=== PATIENT | female | born 1955 | race Caucasian/White ===

== ENCOUNTER 2017-03-13 09:25 | Outpatient (CLI) | payer BC ==
[~2017-03-13] VITALS: Ht 162.6 cm; Wt 78.2 kg
--- NOTE | ~2017-03-13 | OP ---
PATIENT NAME: MARTINA PERRY MEDICAL RECORD: [id number] :[birth year] LOCATION:D.[facility] ADMISSION DATE: SURGEON: ANA MARIA HOWARD MD DATE OF OPERATION: 03/13/2017 PROCEDURES: 1. Left heart catheterization. 2. Selective coronary angiography. 3. Left ventriculogram. INDICATION: Chest pain compatible with angina. PROCEDURE IN DETAIL: After informed consent was obtained and after a detailed explanation of risks, benefits as well as alternative therapies, the patient elected to proceed with angiogram and heart catheterization. The right radial area was prepped and draped in normal sterile fashion. The right radial artery was cannulated via modified Seldinger technique with placement of 5-Polish sheath. All catheters exchanged through this sheath. FINDINGS: Left ventriculogram was performed in standard 30-degree MORELAND view, reveals good cardiac wall motion throughout all segments. Overall ejection fraction estimated at 60%. SELECTIVE CORONARY ANGIOGRAPHY: Left main, left anterior descending, left circumflex, and right coronary artery are all smooth-walled vessels with no angiographic evidence of coronary artery disease. OVERALL IMPRESSION: 1. No angiographic evidence of coronary artery disease. 2. Normal left heart pressures. 3. Normal left ventricular systolic function, chest discomfort is noncardiac in etiology. No further cardiac workup needs to be ascertained. TRANSINT:[id number] Voice Confirmation ID: [id number] DOCUMENT ID: [id number] ANA MARIA HOWARD MD at 1025 CC: [id number] DICTATION DATE: 03/13/17 1250 [employer] SUPERVISOR: 03/13/17 1334 DEP CLI 03/13/17 [address] [place] [address]
--- NOTE | ~2017-03-13 | HEMODYNAMI ---
PATIENT:MARTINA PERRY MEDICAL RECORD: [id number] : 59 LOCATION:[facility] ADMISSION DATE: 03/13/17 Generatedon:03/13/201712:52 Patient name: MARTINA PERRY Patient #: [id number] SSN: : 1955 Date of study: 03/13/2017 Page: Of Hemodynamic Procedure Report Patient Data Patient Demographics Procedure consent was obtained First Name: MARTINA Gender: Female Last Name: VICKY : 1955 Patient #: [id number] Age: 61 year(s) Race: Unknown Additional ID: [id number] Contact details Address: [address] State: [place] City: [place] Zip code: [address] Admission Admission Data Admission Date: 03/13/2017 Admission Time: 9:25 Procedure Procedure Types Cath Procedure Diagnostic Procedure LHC LHC w/Coronaries Miscellaneous Procedures Moderate Sedation up to 15 minutes Procedure Description Procedure Date Procedure Date: 03/13/2017 Procedure Start Time: 12:44 Procedure End Time: 12:51 Procedure Staff Name Function Umesh Collier MD Performing Physician Elliot Felix RT Monitor Jazmyn Spencer RT Scrub Jonathan Fajardo RN Nurse Procedure Data Cath Procedure Fluoroscopy Diagnostic fluoroscopy Total fluoroscopy Time: 0.6 time: 0.6 min min Diagnostic fluoroscopy Total fluoroscopy dose: 171 dose: 171 mGy mGy Contrast Material Contrast Material Type Amount (ml) Isovue 300 31 Entry Location Entry Primary Successful Side Size Upsize Upsize Entry Closure Dillard ccessful Closure Location (Fr) 1 (Fr) 2 (Fr) Remarks Device Remarks Radial Right 6 Fr Mechanical artery Short Compression Estimated blood loss: 10 ml Diagnostic catheters Device Type Used For End Catheter Placement DIAGNOSTIC Orient 110cm 5 Procedure Fr catheter ([id number]) Procedure Complications No complications Procedure Medications Medication Administration Route Dosage Oxygen NC 2 l/min Heparin Flush Bag added to field 2 bags (1000units/500ml NS) 0.9% NaCl I.V. 100 ml/hr Radial Cocktail added to field 1 syringe (Verapomil 2mg/Nitro 400mcg/Heparin 1500units) Fentanyl I.V. 50 mcg Versed I.V. 1 mg Fentanyl I.V. 50 mcg Versed I.V. 1 mg Radial Cocktail I.A. 1 syringe (Verapomil 2mg/Nitro 400mcg/Heparin 1500units) Fentanyl I.V. 50 mcg Versed I.V. 1 mg Fentanyl I.V. 50 mcg Versed I.V. 1 mg Hemodynamics Rest Heart Rate: 58 (bpm) Snapshots Pre Cath Intra NCS Post Cath Vital Signs Time Heart Resp SPO2 etCO2 NIBP (mmHg) Rhythm Pain Sedation Rate (ipm) (%) (mmHg) Status Level (bpm) 12:17:01 57 13 98 0 135/72(104) NSR 0 (11) 10(A) , No pain 12:21:48 57 24 98 38.4 109/53(75) NSR 0 (11) 10(A) , No pain 12:26:33 55 16 98 45.9 114/65(85) NSR 0 (11) 10(A) , No pain 12:31:16 55 18 96 44.6 111/60(79) NSR 0 (11) 10(A) , No pain 12:35:58 57 18 96 45.9 99/55(78) NSR 0 (11) 10(A) , No pain 12:40:40 55 16 95 43.7 113/65(99) NSR 0 (11) 10(A) , No pain 12:46:06 57 19 94 42.1 126/65(99) NSR 0 (11) 9(A) , No pain 12:49:59 59 16 94 44.4 109/60(86) NSR 0 (11) 9(A) , No pain Medications Time Medication Route Dose Verified Delivered Reason Notes Effectiveness by by 12:22:48 Oxygen NC 2 l/min Umesh Castillo Per Nando Fajardo RN physician 12:22:59 Heparin Flush added 2 bags Umesh Castillo used for 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 100 Umesh Castillo Per ml/hr Nando Fajardo RN physician 12:23:22 Radial Cocktail added 1 Umesh Castillo used for (Verapomil to syringe Nando Fajardo RN procedure 2mg/Nitro field 400mcg/Heparin 1500units) 12:42:08 Fentanyl I.V. 50 mcg Umesh Castillo for sedation Nando Fajardo RN 12:42:16 Versed I.V. 1 mg Umesh Jonathan for sedation Nando Fajardo RN 12:44:28 Fentanyl I.V. 50 mcg Umesh Castillo for sedation Nando Fajardo RN 12:44:31 Versed I.V. 1 mg Umesh Jonathan for sedation Nando Fajardo RN 12:46:26 Radial Cocktail I.A. 1 Umesh Calvo for (Verapomil syringe Nando Collier MD vasodilation 2mg/Nitro 400mcg/Heparin 1500units) 12:46:33 Fentanyl I.V. 50 mcg Umesh Jonathan for sedation Nando Fajardo RN 12:46:38 Versed I.V. 1 mg Umesh Jonathan for sedation Nando Fajardo RN 12:48:39 Fentanyl I.V. 50 mcg Umesh Castillo for sedation Nando Fajardo RN 12:48:42 Versed I.V. 1 mg Umesh Castillo for sedation Nando Fajardo RN Procedure Log Time Note 11:55:03 Elliot Felix RT(R) sent for patient. Start room use. 12:05:04 Time tracking: Regular hours 12:05:08 Plan of Care:Hemodynamics will remain stable., Cardiac rhythm will remain stable., Comfort level will be maintained., Respiratory function will remain adequate., Patient/ family verbilizes understanding of procedure., Procedure tolerated without complication., Recovers from procedure without complications.. 12:10:22 Patient received from Pre/Post Procedure Room to CCL 1 Alert and oriented. Tansferred to table in Supine position. 12:10:23 Warm blankets applied, and sonam hugger turned on for patient comfort. 12:10:24 Correct patient and procedure confirmed by team. 12:10:25 Signed procedure consent form obtained from patient. 12:10:26 ECG and BP/O2 sat monitors applied to patient. 12:10:28 Full Disclosure recording started 12:15:56 Vital chart was started 12:19:17 Baseline sample Acquired. 12:19:28 Rhythm: sinus bradycardia 12:19:45 H&P Date Dictated: 03/11/2017 Within 30 days and on chart., H&P Addendum completed by physician on day of procedure. (MUST COMPLETE FOR ALL OUTPATIENTS). 12:19:46 Pre-procedure instructions explained to patient. 12:19:47 Pre-op teaching completed and patient verbalized understanding. 12:19:49 Family in waiting room. 12:19:51 Patient NPO since Midnight. 12:19:53 Is the patient allergic to Iodine/contrast media? No. 12:19:56 Is patient on blood thinner?No 12:19:58 Patient diabetic? No. 12:20:00 Patient not . Patient is over age 55. 12:20:03 Previous problem with sedation/anesthesia? No Nausea sometimes post anesthsia 12:20:33 Snore? Yes 12:20:34 Sleep apnea? No 12:20:35 Deviated septum? No 12:20:35 Opens mouth fully? Yes 12:20:36 Sticks out tongue? Yes 12:20:37 Airway obstruction? No ? 12:20:40 Dentures? No ? 12:20:43 Pre procedure: right dorsailis pedis pulse 1+ Palpable, but thready & weak; easily obliterated 12:20:45 Modified Bharath's test Ulnar < 7 seconds 12:20:47 Patient pain scale 0/10 ?. 12:20:52 IV patent on arrival in left antecubital with 0.9% NaCl at O. 12:21:03 Lab results completed and on chart. 12:21:06 Right Radial & Right Groin area was prepped with chlora-prep and draped in sterile fashion 12:21:07 Alarms reviewed by R. N. 12:21:07 Sharps counted by scrub and verified by R.N. 12:21:12 Use device set Radial Dx or PCI 12:21:18 Tegaderm 4 x 4 (1626W) opened to sterile field. 12:21:19 ACIST Hand Control (31531) opened to sterile field. 12:21:19 ACIST Manifold (51640) opened to sterile field. 12:21:20 ACIST Syringe (36428) opened to sterile field. 12:21:21 Medline Cath Pack ([id number]) opened to sterile field. 12:21:21 Bag Decanter (2002S) opened to sterile field. 12:21:22 SHEATH 6FR Slender ([id number]) opened to sterile field. 12:21:22 DIAGNOSTIC WIRE .035 260cm J wire (628366) opened to sterile field. 12:21:23 MBrace Wrist Support ([id number]) opened to sterile field. 12:22:48 Oxygen 2 l/min NC was administered by Jonathan Fajardo RN; Per physician; 12:22:59 Heparin Flush Bag (1000units/500ml NS) 2 bags added to field was administered by Jonathan Fajardo RN; used for procedure; 12:23:10 0.9% NaCl 100 ml/hr I.V. was administered by Jonathan Fajardo RN; Per physician; 12:23:22 Radial Cocktail (Verapomil 2mg/Nitro 400mcg/Heparin 1500units) 1 syringe added to field was administered by Jonathan Fajardo RN; used for procedure; 12:25:53 Physician paged 12:36:19 Zero performed for pressure channel P1 12:41:29 --------ALL STOP TIME OUT------ 12:41:29 Final Timeout: patient, procedure, and site verified with staff and physician. All members of the team are in agreement. 12:41:33 Right Radial & Right Groin site verified by team. 12:41:37 Physical assessment completed. ASA score P 2 - A patient with mild systemic disease as per Umesh Collier MD. 12:41:39 Sedation plan: IV Moderate Sedation Medication:Versed, Fentanyl 12:42:08 Fentanyl 50 mcg I.V. was administered by Jonathan Fajardo RN; for sedation; 12:42:16 Versed 1 mg I.V. was administered by Jonathan Fajardo RN; for sedation; 12:44:04 Procedure started. 12:44:09 Local anesthetic to right radial artery with Lidocaine 2% by Umesh Collier MD.INITIAL ACCESS ONLY 12:44:28 Fentanyl 50 mcg I.V. was administered by Jonathan Fajardo RN; for sedation; 12:44:31 Versed 1 mg I.V. was administered by Jonathan Fajardo RN; for sedation; 12:45:57 A 6 Fr Short sheath was inserted into the Right Radial artery 12:46:26 Radial Cocktail (Verapomil 2mg/Nitro 400mcg/Heparin 1500units) 1 syringe I.A. was administered by Umesh Collier MD; for vasodilation; 12:46:31 A DIAGNOSTIC Orient 110cm 5 Fr catheter (413201) was advanced over the wire and used for Procedure. 12:46:33 Fentanyl 50 mcg I.V. was administered by Jonathan Fajardo RN; for sedation; 12:46:38 Versed 1 mg I.V. was administered by Jonathan Fajardo RN; for sedation; 12:47:05 LV angiography performed. 12:47:06 LV gram done using MORELAND 12:47:11 EF : 60 % 12:47:15 Injector settings: Ml/sec: 7, Volume: 15, 12:47:30 RCA angiography performed. 12:47:45 LCA angiography performed. 12:47:48 TR BAND Standard ([id number]) opened to sterile field. 12:47:55 Catheter removed. 12:48:18 Sheath removed intact; hemostasis achieved with Mechanical Compression to the Right Radial artery. 12:48:20 Procedure ended.(Physican Out) 12:48:39 Fentanyl 50 mcg I.V. was administered by Jonathan Fajardo RN; for sedation; 12:48:42 Versed 1 mg I.V. was administered by Jonathan Fajardo RN; for sedation; 12:49:02 Fluoroscopy time 00.60 minutes. 12:49:06 Fluoroscopy dose: 171 mGy 12:49:06 Flurop Dose total: 171 12:49:10 Contrast amount:Isovue 300 31ml. 12:49:12 Sharps counted by scrub and verified by R.N. 12:49:14 TR band inflated with 12cc of air. 12:49:15 Insertion/operative site no bleeding no hematoma. 12:49:16 Post Procedure Pulses reassessed and unchanged 12:49:19 Post-procedure physical assessment completed. ASA score P 2 - A patient with mild systemic disease as per Umesh Collier MD. 12:49:21 Post procedure rhythm: unchanged. 12:49:24 Estimated blood loss: 10 ml 12:49:26 Post procedure instruction explained to patient.Patient verbalizes understanding. 12:49:26 Patient needs reinforcement of post procedure teaching. 12:49:33 Procedure type changed to Cath procedure, Diagnostic procedure, LHC, LHC w/Coronaries, Miscellaneous Procedures, Moderate Sedation up to 15 minutes 12:49:34 Procedure and supply charges have been captured, reviewed, submitted and are correct. 12:49:37 Procedure Complication : No complications 12:51:04 Vital chart was stopped 12:51:05 See physician's report for complete and final results. 12:51:06 Report given to Pre/Post Procedure Room. 12:51:09 Patient transfered to Pre/Post Procedure Room with Stretcher. 12:51:12 Procedure ended. 12:51:12 Full Disclosure recording stopped 12:51:22 End room use (Document Last) Device Usage Item Name Manufacture Quantity Catalog Hospital Part Current Minima l Lot# / Number Charge Number Stock Stock Serial# Code Tegaderm 4 x 3M 1 1626W [id number] 473554 [id number] 5 4 (1626W) ACIST Hand Acist 1 58040 793692 383041 250501 5 Control Medical (23900) Systems Inc ACIST Acist 1 32258 107176 395939 198660 5 Manifold Medical (38182) Systems Inc ACIST Acist 1 17582 741458 083187 379352 20 Syringe Medical (87434) Systems Inc Medline Cath Cardinal 1 [id number] 964313 02533 926725 5 Pack Health ([id number]) Bag Decanter Microtek 1 2001S 937402 80690 798666 5 (2001S) Medical Inc. SHEATH 6FR Terumo 1 [id number] 700609 910789 455232 40 Slender ([id number]) DIAGNOSTIC [facility] 1 [id number] 446940 816260 471529 30 WIRE .035 260cm J wire (044543) MBrace Wrist Advanced 1 140-0250-00 908859 15701 415971 5 Support Vascular ([id number]) Dynamics DIAGNOSTIC Terumo 1 40-5013 468462 337603 853461 5 Orient 110cm 5 Fr catheter (333378) TR BAND Terumo 1 [id number] 360467 357389 685798 40 Standard ([id number]) Signature Audit [place] Stage Time Signature Unsigned Intra-Procedure 03/13/2017 Elliot Felix 12:52:07 PM RT(R) Signatures Monitor : Elliot Felix RT Signature : Date : Time : [address] [place] [address]
[2017-03-13] MEDS ORDERED: BUPROPION XL150 MG PO (09:45)
[2017-03-13] MEDS ORDERED: BUPROPION XL300 MG PO (09:45)
[2017-03-13] MEDS ORDERED: HCTZ25 MG PO (09:46)
[2017-03-13] MEDS ORDERED: PROPRANOLOL HCL60 M1 PO (09:46)
[2017-03-13] MEDS ORDERED: LEVOXYL50 MCG PO (09:46)
[2017-03-13] MEDS ORDERED: ESTRACE1 MG PO (09:46)
[2017-03-13] MEDS ORDERED: PROPECIA1 MG PO (09:47)
[2017-03-13] MEDS ORDERED: BELSOMRA20 MG PO (09:47)
[2017-03-13 09:58] VITALS: BP 143/68; Ht 162.6 cm; Wt 78.2 kg
[2017-03-13 10:41] LABS: BASOPHILS 0.3 % (0-2); HEMATOCRIT 40.9 % (36.0-48.0); HEMOGLOBIN 13.6 g/dL (12-16); IMMATURE GRANULOCYTES 0.1 % (0-5); LYMPHOCYTES 26.3 % (15-50); MCH 31.4 pg (26.0-34.0); MCHC 33.3 g/dL (31.0-37.0); MCV 94.5 fL (80.0-100.0); MEAN PLATELET VOLUME 10.2 fL (7.4-10.4); MONOCYTES 9.5 % (2-11); NEUTROPHILS 58.8 % (40-80); PLATELET COUNT 253 10x3/uL (130-400); RBC 4.33 10x6/uL (4.00-5.40); RDW 13.4 % (11.5-14.5); WBC 7.1 10x3/uL (4.8-10.8)
[2017-03-13 10:53] LABS: ANION GAP 9.2 mmol/L (8-16); CALCIUM 9.2 mg/dL (8.5-10.1); CARBON DIOXIDE 31.6 mmol/L (21.0-32.0); CREATININE - SERUM 0.9 mg/dL (0.6-1.3); POTASSIUM - SERUM 3.8 mmol/L (3.5-5.1)
== END 2017-03-13 15:27 | disposition home or self-care (01) ==
LOC: D.CATH 09:25
PROVIDERS: Internal Medicine Interventional Cardiology
DX: I20.9 Angina pectoris, unspecified (principal); R06.02 Shortness of breath; R07.9 Chest pain, unspecified; Z01.812 Encounter for preprocedural laboratory examination